=== PATIENT | female | born 1935 | race African-American/Black ===

== ENCOUNTER 2023-01-21 20:29 | Emergency (ER) | payer OTHER ==
[~2023-01-21] VITALS: Ht 162.6 cm; Wt 52.2 kg
[2023-01-21 20:29] VITALS: BP 120/72
--- NOTE | 2023-01-21 20:34 | NUR ---
PT BIBA ER BED 9
--- NOTE | 2023-01-21 20:48 | NUR ---
87 YO F BIBA FROM [facility] WITH C/C OF POSSIBLE FALL. PER EMS STAFF STATES PT WAS SITTING IN CHAIR AND WHEN THEY CHECKED ON HER AGAIN SHE LYING IN A POSITION ON THE FLOOR. NO VISIBLE INJURIES OR TRAUMA. PT DENIES PAIN. NO BLOOD THINNERS. NO LOC. PT IS A&OX1 TO NAME WHICH IS BASELINE WITH HISTORY OF DEMENTIA. 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 BED LOCKED IN LOWEST POSITION, SIDE RAILS X2 FOR SAFETY. HX:DEMENTIA, PARKIN[place] NKA
[2023-01-21] MEDS ORDERED: HALOPERIDOL IM 5 MG/ML VIAL IM ONE (21:10)
--- NOTE | 2023-01-21 21:31 | NUR ---
EKG, LABS AND CT HELD WHILE HALDOL TAKES ACTION. PT WAS PULLING OFF MEDICAL EQUIPMENT, ATTEMPTING TO BITE AND HIT STAFF MEMBERS. PT REDIRECTED, BEHAVIOR CONTINUES. DR.DELA TIMMONS PLACED ORDER FOR HALDOL, ORDER CARRIED OUT.
--- NOTE | 2023-01-21 21:37 | NUR ---
PT TAKEN TO CT VIA [facility]
--- NOTE | 2023-01-21 21:45 | NUR ---
PT BACK FROM CT
[2023-01-21 22:50] LABS: BASOPHILS % (AUTO) 0.6 % (0.0-2.0); EOSINOPHILS # (AUTO) 0.2 K/uL (0-0.4); EOSINOPHILS % (AUTO) 2.5 % (0.0-4.0); HEMATOCRIT 34.7 % (36-48); HEMOGLOBIN 11.4 g/dL (12.0-16.0); LYMPHOCYTES # (AUTO) 1.8 K/uL (2.5-16.5); LYMPHOCYTES % (AUTO) 22.9 % (20.5-51.1); MEAN CORPUSCULAR HEMOGLOBIN 29 pg (27-31); MEAN CORPUSCULAR HGB CONC 33 g/dL (33-37); MEAN CORPUSCULAR VOLUME 89.2 fL (80-94); MONOCYTES # (AUTO) 0.5 K/uL (0.8-1.0); MONOCYTES % (AUTO) 6.8 % (1.7-9.3); NEUTROPHILS # (AUTO) 5.2 K/uL (1.8-7.7); NEUTROPHILS % (AUTO) 67.2 % (42.2-75.2); PLATELET COUNT (AUTO) 293 K/uL (140-450); RED BLOOD CELL COUNT(AUTO) 3.89 MIL/uL (4.20-5.40); RED CELL DISTRIBUTION WIDTH 13.8 % (11.6-13.7); WHITE BLOOD COUNT (AUTO) 7.7 K/uL (4.8-10.8)
--- NOTE | 2023-01-21 22:50 | NUR ---
PT APPEARS TO BE RESTING IN A SUPINE POSITION, EYES ARE CLOSED, OPENS TO TOUCH. EQUAL RISE AND FALL OF CHEST WALL. BED LOCKED IN LOWEST POSITION, SIDE RAILS X2 FOR SAFETY. ALL NEEDS AT THIS TIME.
[2023-01-21 23:23] LABS: ALBUMIN 2.4 g/dL (3.4-5.0); ASPARTATE AMINOTRANSFERASE 23 U/L (15-37); CARBON DIOXIDE 30.2 mmol/L (21-32); CHLORIDE 112 mmol/L (98-107); CREATININE 0.6 mg/dL (0.6-1.3); GLUCOSE 113 mg/dL (74-106); POTASSIUM 3.2 mmol/L (3.5-5.1); SODIUM SERUM 148 mmol/L (136-145); TOTAL BILIRUBIN 0.4 mg/dL (0.0-1.0); UREA NITROGEN, BLOOD 19 mg/dL (7-18)
--- NOTE | 2023-01-21 23:44 | NUR ---
report given to [facility] Thrinacia at [facility].
[2023-01-22 00:15] VITALS: BP 141/77
--- NOTE | 2023-01-22 00:15 | NUR ---
Patient discharged with v/s stable. Written and verbal after care instructions given and explained. Patient verbalized understanding. Wheel Chair Assisted with to car. All questions addressed prior to discharge. Advised to follow up with PMD.
== END 2023-01-22 00:15 | disposition home or self-care (01) ==
LOC: MED 20:29
DX: G20 Parkinson's disease (principal); F02.80 Dementia in other diseases classified elsewhere, unspecified severity, without behavioral disturbance, psychotic disturbance, mood disturbance, and anxiety; R94.31 Abnormal electrocardiogram [ECG] [EKG]; W18.30XA Fall on same level, unspecified, initial encounter; Y93.89 Activity, other specified; Y92.89 Other specified places as the place of occurrence of the external cause; Y99.8 Other external cause status
CPT/HCPCS: 36415; 70450; 72125; 80053; 82550; 84484; 85025; 93005; 96372; 99285; J1630

== ENCOUNTER 2023-04-27 15:25 | Inpatient (IN) | payer OTHER ==
[~2023-04-27] VITALS: Ht 160 cm; Wt 40.8 kg
[2023-04-27] MEDS ORDERED: DEXTROSE 50% 50 ML SYR IVP ONE ×2 (15:33→17:15)
[2023-04-27 15:43] VITALS: BP 112/64; PULSE 76; RESP 20; TEMP 97.6; O2SAT 98
[2023-04-27] MEDS ORDERED: NACL 0.9% 1,000 ML IV ONE (15:45)
[2023-04-27 16:19] LABS: BASOPHILS % (AUTO) 0.3 % (0.0-2.0); EOSINOPHILS % (AUTO) 0.1 % (0.0-4.0); HEMATOCRIT 43.1 % (36-48); HEMOGLOBIN 13.7 g/dL (12.0-16.0); LYMPHOCYTES # (AUTO) 1.6 K/uL (2.5-16.5); LYMPHOCYTES % (AUTO) 18.9 % (20.5-51.1); MEAN CORPUSCULAR HEMOGLOBIN 29 pg (27-31); MEAN CORPUSCULAR HGB CONC 32 g/dL (33-37); MEAN CORPUSCULAR VOLUME 90.2 fL (80-94); MONOCYTES # (AUTO) 0.3 K/uL (0.8-1.0); MONOCYTES % (AUTO) 3.4 % (1.7-9.3); NEUTROPHILS # (AUTO) 6.6 K/uL (1.8-7.7); NEUTROPHILS % (AUTO) 77.3 % (42.2-75.2); PLATELET COUNT (AUTO) 215 K/uL (140-450); RED BLOOD CELL COUNT(AUTO) 4.78 MIL/uL (4.20-5.40); RED CELL DISTRIBUTION WIDTH 18.5 % (11.6-13.7); WHITE BLOOD COUNT (AUTO) 8.6 K/uL (4.8-10.8)
[2023-04-27 16:40] LABS: ALANINE AMINOTRANSFERASE 40 U/L (12-78); ALBUMIN 3.3 g/dL (3.4-5.0); ALKALINE PHOSPHATASE 161 U/L (50-136); ASPARTATE AMINOTRANSFERASE 25 U/L (15-37); CALCIUM 9.5 mg/dL (8.5-10.1); CARBON DIOXIDE 24.1 mmol/L (21-32); CHLORIDE 110 mmol/L (98-107); CREATININE 0.9 mg/dL (0.6-1.3); GLUCOSE 58 mg/dL (74-106); LACTATE DEHYDROGENASE 225 U/L (81-234); POTASSIUM 4.1 mmol/L (3.5-5.1); SODIUM SERUM 147 mmol/L (136-145); TOTAL BILIRUBIN 0.6 mg/dL (0.0-1.0); TOTAL PROTEIN, SERUM 7.6 g/dL (6.4-8.2); UREA NITROGEN, BLOOD 32 mg/dL (7-18)
[2023-04-27 16:42] LABS: LACTIC ACID 1.5 mmol/L (0.4-2.0)
[2023-04-27 16:44] LABS: INR 0.99 (0.8-1.2); PARTIAL THROMBOPLASTIN TIME 26.7 secs (22-35.6); PROTHROMBIN TIME 10.4 secs (10.8-13.4)
[2023-04-27 20:07] LABS: APPEARANCE,URINE SL CLOUDY (CLEAR); BILIRUBIN,URINE NEGATIVE (NEGATIVE); BLOOD, URINE 1+ (NEGATIVE); COLOR,URINE YELLOW (YELLOW); LEUKOCYTE ESTERASE ,URINE 1+ (NEGATIVE); NITRITE, URINE NEGATIVE (NEGATIVE); PROTEIN,URINE TRACE (NEGATIVE); UGLUCOSE TRACE (NEGATIVE); UROBILINOGEN,URINE 0.2 EU/dL (0.2 - 1)
[2023-04-27] MEDS ORDERED: ACETAMINOPHEN 325 MG TAB PO PRN ×2 (20:10→20:15)
[2023-04-27 20:11] LABS: BACTERIA,URINE FEW /HPF (None Seen); MUCUS,URINE 2+ /LPF (None Seen); RBC,URINE 11-20 (MOD) /HPF (0-5); SQUAMOUS EPITHELIAL CELL,UR 4-10 (MOD) /LPF (0-3 (FEW)); WBC,URINE 16-25 (MOD) /HPF (0-5)
[2023-04-27 20:12] LABS: TRICHOMONAS,URINE None Seen /HPF (None Seen); WHITE BLOOD CELL CASTS,URINE 0-3 /LPF (None Seen); YEAST,URINE None Seen /HPF (None Seen)
[2023-04-27 21:50] VITALS: BP 151/86; PULSE 55; RESP 18; TEMP 97.3; O2SAT 99
[2023-04-28] VITALS: BP 154/74; PULSE 57; PULSE 59; RESP 16; TEMP 96.5; O2SAT 100
[2023-04-28 04:00] VITALS: BP 144/83; PULSE 64; PULSE 67; RESP 17; TEMP 96.6; O2SAT 99
[2023-04-28 08:00] VITALS: BP 158/92; PULSE 80; PULSE 83; RESP 18; TEMP 96.4; O2SAT 100
[2023-04-28] MEDS ORDERED: DEXTROSE 50% 50 ML SYR IVP PRN (08:55)
[2023-04-28] MEDS ORDERED: DEXT 5% /NACL 0.9% 1,000 ML IV SCH (09:05)
[2023-04-28] MEDS: DEXT 5% / NACL 0.45% 1,000 ML IV SCH ×2 (09:28→21:06)
[2023-04-28 09:47] LABS: LACTIC ACID 1.8 mmol/L (0.4-2.0)
[2023-04-28] MEDS: BLOOD GLUCOSE MONITORING 1 DEV DEV FS SCH ×3 (11:39→20:21)
[2023-04-28] MEDS: amLODIPine 5 MG TAB PO SCH (11:46)
[2023-04-28] MEDS: INSULIN LISPRO SLIDING SCALE 100 UNITS/ML VIAL SUBQ PRN ×3 (11:55→20:16)
[2023-04-28 12:00] VITALS: BP 158/111; PULSE 104; PULSE 95; RESP 18; TEMP 96.3; O2SAT 94
[2023-04-28 12:26] LABS: ANION GAP 12.3 (8-16); CALCIUM 9.7 mg/dL (8.5-10.1); CARBON DIOXIDE 27.3 mmol/L (21-32); CHLORIDE 111 mmol/L (98-107); CREATININE 0.8 mg/dL (0.6-1.3); GLUCOSE 141 mg/dL (74-106); POTASSIUM 3.6 mmol/L (3.5-5.1); SODIUM SERUM 147 mmol/L (136-145); UREA NITROGEN, BLOOD 27 mg/dL (7-18)
[2023-04-28 12:46] LABS: FREE T4 (FREE THYROXINE) 1.61 ng/dL (0.76-1.46); THYROID STIMULATING HORMONE 2.09 uIU/mL (0.34-3.74)
[2023-04-28 16:00] VITALS: BP 150/75; PULSE 80; PULSE 98; RESP 18; TEMP 97.7; O2SAT 100
[2023-04-28 20:00] VITALS: BP 166/54; PULSE 69; PULSE 99; RESP 18; RESP 19; TEMP 97.9; O2SAT 97
[2023-04-28] MEDS ORDERED: hydrALAZINE 20 MG/ML VIAL IVP PRN (23:25)
[2023-04-29] VITALS (8 sets, daily range): BP systolic 102–180; BP diastolic 62–122; PULSE 66–121; RESP 17–20; TEMP 97.1–98.7; O2SAT 98–100
[2023-04-29] MEDS ORDERED: METOPROLOL 50 MG TAB PO ONE (03:20)
[2023-04-29] MEDS: BLOOD GLUCOSE MONITORING 1 DEV DEV FS SCH ×3 (06:23→17:09)
[2023-04-29 08:08] LABS: FOLIC ACID 6.5 ng/mL (>3.0)
[2023-04-29] MEDS ORDERED: CEPH250C16 PO (10:37)
[2023-04-29] MEDS: amLODIPine 5 MG TAB PO SCH (10:57)
[2023-04-29 11:08] LABS: BASOPHILS % (AUTO) 0.1 % (0.0-2.0); HEMATOCRIT 39.4 % (36-48); HEMOGLOBIN 12.6 g/dL (12.0-16.0); LYMPHOCYTES # (AUTO) 0.7 K/uL (2.5-16.5); LYMPHOCYTES % (AUTO) 5.2 % (20.5-51.1); MEAN CORPUSCULAR HEMOGLOBIN 29 pg (27-31); MEAN CORPUSCULAR HGB CONC 32 g/dL (33-37); MEAN CORPUSCULAR VOLUME 89.3 fL (80-94); MONOCYTES # (AUTO) 0.7 K/uL (0.8-1.0); MONOCYTES % (AUTO) 5.2 % (1.7-9.3); NEUTROPHILS # (AUTO) 12.5 K/uL (1.8-7.7); NEUTROPHILS % (AUTO) 89.5 % (42.2-75.2); PLATELET COUNT (AUTO) 176 K/uL (140-450); RED BLOOD CELL COUNT(AUTO) 4.41 MIL/uL (4.20-5.40); RED CELL DISTRIBUTION WIDTH 17.8 % (11.6-13.7)
[2023-04-29 11:38] LABS: SODIUM SERUM 144 mmol/L (136-145)
[2023-04-29 11:39] LABS: ANION GAP 11.2 (8-16); CALCIUM 9.8 mg/dL (8.5-10.1); CHLORIDE 108 mmol/L (98-107); CREATININE 0.7 mg/dL (0.6-1.3); GLUCOSE 131 mg/dL (74-106); POTASSIUM 4.2 mmol/L (3.5-5.1); UREA NITROGEN, BLOOD 22 mg/dL (7-18)
[2023-04-29] MEDS ORDERED: metroNIDAZOLE 500 MG/NS PREMIX 100 ML IV SCH (13:00)
[2023-04-29] MEDS ORDERED: FOAM DRESSING TP SCH (13:00)
[2023-04-29] MEDS ORDERED: GAUZE TP SCH (13:00)
[2023-04-29] MEDS ORDERED: HYDRAGUARD CREAM TP SCH (13:00)
[2023-04-29] MEDS: DEXT 5% / NACL 0.45% 1,000 ML IV SCH (13:17)
== END 2023-04-29 18:56 | DRG 637 ==
LOC: MED 15:25 → MTU 20:13 → MED 20:21 → MTU 20:44
PROVIDERS: ADMIT Student in an Organized Health Care Education/Training Program; ATTEND Student in an Organized Health Care Education/Training Program
DX: E11.649 Type 2 diabetes mellitus with hypoglycemia without coma (principal); G93.41 Metabolic encephalopathy; N39.0 Urinary tract infection, site not specified; Z68.1 Body mass index [BMI] 19.9 or less, adult; E87.0 Hyperosmolality and hypernatremia; E44.1 Mild protein-calorie malnutrition; E86.0 Dehydration; G20 Parkinson's disease; F02.80 Dementia in other diseases classified elsewhere, unspecified severity, without behavioral disturbance, psychotic disturbance, mood disturbance, and anxiety; F41.9 Anxiety disorder, unspecified
CPT/HCPCS: 36415; 70450; 71045; 80048; 80053; 81001; 82140; 82607; 82746; 82948; 83605; 83615; 84439; 84443; 84484; 85025; 85610; 85730; 87040; 87081; 87086; 92526; 93005; 93971; 96374; 97112; 97163-GP; 97530; 99285; J0360; J0696; J1815; J3490; J7060; Q0092